=== PATIENT | female | born 1955 | race Caucasian/White ===

== ENCOUNTER 2024-02-13 13:17 | Emergency (ER) | payer MEDICARE, BC ==
[~2024-02-13] VITALS: Ht 162.6 cm; Wt 104.5 kg
[2024-02-13 13:40] VITALS: TEMP 98.7
[2024-02-13 14:30] LABS: BASOPHILS # (AUTO) 0.1 X10'3 (0-0.2); BASOPHILS % (AUTO) 0.7 % (0-1); EOSINOPHILS # (AUTO) 0.2 X10'3 (0-0.9); EOSINOPHILS % (AUTO) 1.9 % (0-6); HEMATOCRIT 28.6 % (35.0-45.0); HEMOGLOBIN 8.7 g/dl (12.0-16.0); LYMPHOCYTES # (AUTO) 0.9 X10'3 (1.1-4.8); LYMPHOCYTES % (AUTO) 10.3 % (21-51); MEAN CORPUSCULAR HEMOGLOBIN 21.7 PG (27.0-31.0); MEAN CORPUSCULAR HGB CONC 30.2 g/dL (33.0-36.5); MEAN CORPUSCULAR VOLUME 71.9 FL (78-98); MEAN PLATELET VOLUME 7.3 FL (7.4-10.4); MONOCYTES # (AUTO) 0.6 X10'3 (0-0.9); MONOCYTES % (AUTO) 6.8 % (2-12); NEUTROPHILS # (AUTO) 6.7 X10'3 (1.8-7.7); NEUTROPHILS % (AUTO) 80.3 % (42-75); PLATELET COUNT 544 X10'3 (140-440); RED BLOOD COUNT 3.98 X10'6 (4.20-5.60); RED CELL DISTRIBUTION WIDTH 17.2 % (11.5-14.5); WHITE BLOOD COUNT 8.4 X10'3 (4.5-11.0)
[2024-02-13 14:40] LABS: D-DIMER 1.92 MG/L FEU (0-0.50)
[2024-02-13 14:44] LABS: ALANINE AMINOTRANSFERASE 20 U/L (12-78); ALBUMIN 2.2 G/DL (3.4-5.0); ALBUMIN/GLOBULIN RATIO 0.4 (1.1-1.5); ALKALINE PHOSPHATASE 79 IU/L (46-116); ANION GAP 11 (8-16); ASPARTATE AMINO TRANSFERASE 17 U/L (10-37); BILIRUBIN,TOTAL 0.4 MG/DL (0.1-1.0); BLOOD UREA NITROGEN 18 MG/DL (7-18); BUN/CREATININE RATIO 14.9 (10.0-20.0); CHLORIDE 103 MMOL/L (99-107); CREATININE 1.21 MG/DL (0.40-0.90); GLUCOSE 182 MG/DL (70-104); POTASSIUM 4.1 MMOL/L (3.5-5.1); SODIUM 142 MMOL/L (135-145); TOTAL CARBON DIOXIDE 28.1 MMOL/L (24-32); TOTAL PROTEIN 7.2 G/DL (6.4-8.2); eCRCL 38 ML/MIN; eGFR 44 ML/MIN
[2024-02-13] MEDS: normal saline 1000ML IV soln IVB ONE (15:53)
[2024-02-13] MEDS ORDERED: iohexol 350MG/ML 100ml bottle IV ONE (16:17)
[2024-02-13 17:01] VITALS: BP 174/94
[2024-02-13 17:37] LABS: % IRON SATURATION 3 % (11-46); IRON 11 UG/DL (49-151); TOTAL IRON BINDING CAPACITY 343 UG/DL (259-388)
[2024-02-13] MEDS ORDERED: IRON-32 PO (18:00)
[2024-02-13] MEDS ORDERED: DOXY-1 PO (18:00)
[2024-02-13] MEDS ORDERED: AMOX-419 PO (18:01)
[2024-02-13] MEDS ORDERED: FLUT1BLS16 INH (18:10)
[2024-02-13] MEDS: iron sucrose complex injection 200 MG in normal saline 100ml IV soln 100 ML IV ONE (18:13)
[2024-02-13] MEDS: ipratropium/albuterol 3ml nebule NEB ONE (18:46)
[2024-02-13 18:50] VITALS: PULSE 115; RESP 16; O2SAT 96
[2024-02-13] MEDS: albuterol 2.5 MG/3 ML nebule CONTNEB ONE (18:53)
[2024-02-13 18:56] VITALS: PULSE 120; RESP 18; O2SAT 94
== END 2024-02-13 19:29 | disposition home or self-care (01) ==
LOC: ER 13:17
DX: D50.9 Iron deficiency anemia, unspecified (principal); R53.1 Weakness; I10 Essential (primary) hypertension; J45.909 Unspecified asthma, uncomplicated; Z79.2 Long term (current) use of antibiotics; Z79.899 Other long term (current) drug therapy
CPT/HCPCS: 36415; 71045; 71275; 80053; 82728; 82948; 83540; 83550; 83605; 85025; 85379; 87040; 94640; 96361; 96365; 99285; A4615; J1756; J7030; Q9967; Z7610